=== PATIENT | male | born 1955 | race Caucasian/White ===

== ENCOUNTER 2023-11-05 04:06 | Inpatient (IN) | payer OTHER ==
[2023-11-05] VITALS (7 sets, daily range): BP systolic 150; BP diastolic 85; PULSE 82–103; RESP 18–25; TEMP 98.9; O2SAT 92–96
[~2023-11-05] VITALS: Ht 180.3 cm; Wt 70.1 kg
[2023-11-05 07:06] LABS: Basophils # (auto) 0 10 ^3/uL (0-0.2); Basophils % (auto) 0.2 % (0.0-2.0); Eosinophils # (auto) 0 10 ^3/uL (0-0.8); Eosinophils % (auto) 0.1 % (0.0-7.0); Hematocrit 55.7 % (41.0-53.0); Lymphocytes # (auto) 1.9 10 ^3/uL (0.4-5.4); Lymphocytes % (auto) 12.5 % (10.0-50.0); Mean Corpuscular Hemoglobin 33.5 pg (28.0-32.0); Mean Corpuscular Hgb Conc. 34.2 g/dL (32.0-36.0); Mean Corpuscular Volume 98.1 fL (80.0-100.0); Monocytes # (auto) 1.1 10 ^3/uL (0-1.3); Monocytes % (auto) 7.1 % (0.0-12.0); Neutrophils # (auto) 12.1 10 ^3/uL (1.6-8.6); Neutrophils % (auto) 80.1 % (37.0-80.0); Nucleated Red Blood Cells % 0.1 %; Platelet Count (auto) 209 10^3/uL (140-450); Red Blood Cells 5.68 10^6/uL (4.5-5.90); Red Cell Distribution Width 13.5 % (11.8-14.3); White Blood Cell 15.1 10^3/uL (4.4-10.8)
[2023-11-05 07:31] LABS: Chloride 108 mmol/L (98-107); Potassium 4.1 mmol/L (3.5-5.1); Sodium 139 mmol/L (136-145)
[2023-11-05 07:32] LABS: Anion Gap 10 (5-15); Carbon Dioxide 21 mmol/L (20-30)
[2023-11-05 07:37] LABS: Glucose 138 mg/dL (74-106)
[2023-11-05 07:38] LABS: BUN/Creatinine Ratio 15.4 (10.0-20.0); Blood Urea Nitrogen 12 mg/dL (9-23)
[2023-11-05] MEDS ORDERED: DEXTROSE (50%) 50ML SYRG IV PRN (09:30)
[2023-11-05] MEDS: SODIUM CHLORIDE 0.9% 1,000 ML IV SCH (09:30)
[2023-11-05] MEDS ORDERED: DOCUSATE SOD 100 MG CAP PO PRN (09:30)
[2023-11-05] MEDS: IOHEXOL 350 MG/ML 100ML IJ ONE (09:54)
[2023-11-05] MEDS: levoFLOXacin 500MG 100 ML IV SCH (10:00)
[2023-11-05 10:09] LABS: INR 1.23 (0.9-1.15); Prothrombin Time 13.1 sec (9.3-11.8)
[2023-11-05] MEDS ORDERED: NITROGLYCERIN 0.4 MG SL TAB SL PRN (10:30)
[2023-11-05] MEDS: methylPREDNISolone SOD SUCC 125 MG/2 ML VL IV ONE (10:45)
[2023-11-05] MEDS: PANTOPRAZOLE 40 MG/10 ML VIAL INJ IV ONE (10:45)
[2023-11-05] MEDS: ALBUTEROL SULF 2.5 MG/0.5ML(0.5%) NEB SOLN NEB ONE (11:11)
[2023-11-05] MEDS: IPRATROPIUM BROM 0.5 MG/2.5ML INH SOL NEB ONE (11:11)
[2023-11-05] MEDS: ACCU-CHEK COMFORT CURVE STRIP VI SCH (11:41)
[2023-11-05] MEDS: InsuLIN REG 1unit/0.01ml Soln (100units/ml) SC SCH (11:43)
[2023-11-05] MEDS: ENOXAPARIN SOD 40 MG/0.4 ML SYRINGE SC SCH (12:00)
[2023-11-05 14:12] LABS: Erythrocyte Sedimentation Rate 2 mm/hr (0-20)
[2023-11-05] MEDS: amLODIPine BESYLATE 5 MG TAB PO SCH (15:14)
[2023-11-05] MEDS: methylPREDNISolone SOD SUCC 125 MG/2 ML VL IV SCH (15:15)
[2023-11-05] MEDS: MORPHINE SULFATE INJ 2 MG/ml SYRG IV PRN (20:58)
[2023-11-05] MEDS: ONDANSETRON HCL 4 MG/2 ML VIAL IV PRN (20:58)
[2023-11-05] MEDS: IPRATROPIUM BROM 0.5 MG/2.5ML INH SOL NEB PRN (21:18)
[2023-11-05] MEDS: ALBUTEROL SULF 2.5 MG/0.5ML(0.5%) NEB SOLN NEB PRN (21:18)
[2023-11-06] VITALS (22 sets, daily range): BP systolic 124–168; BP diastolic 63–84; PULSE 72–98; RESP 20–33; TEMP 97.9–98.9; O2SAT 90–97
[2023-11-06] MEDS ORDERED: EMPA1TAB3 PO (01:39)
[2023-11-06] MEDS ORDERED: RILU50TA2 PO ×2 (01:39→08:54)
[2023-11-06] MEDS ORDERED: LEVO100T8 PO (01:39)
[2023-11-06] MEDS ORDERED: DULA0.5I SC (01:39)
[2023-11-06] MEDS ORDERED: ACE30IS PO (01:39)
[2023-11-06] MEDS ORDERED: LATA0.008 EACHEYE (01:39)
[2023-11-06] MEDS ORDERED: FLUT50SP NAS (01:39)
[2023-11-06] MEDS ORDERED: [UNRECOGNIZED DRUG - CODE] (02:58)
[2023-11-06] MEDS ORDERED: ALBUAER3 IN (02:58)
[2023-11-06 04:27] LABS: Base Excess -2.8 mmol/L (-2.0-3.0)
[2023-11-06 06:19] LABS: Base Excess 1.8 mmol/L (-2.0-3.0)
[2023-11-06 07:45] LABS: Alanine Aminotransferase 23 U/L (7-40); Albumin 4.1 g/dL (3.2-4.8); Alkaline Phosphatase 63 U/L (46-116); Anion Gap 8 (5-15); Aspartate Aminotransferase 15 U/L (13-40); BUN/Creatinine Ratio 20.3 (10.0-20.0); Bilirubin, Total 0.4 mg/dL (0.2-1.0); Blood Urea Nitrogen 14 mg/dL (9-23); Calcium 10.6 mg/dL (8.7-10.4); Carbon Dioxide 30 mmol/L (20-30); Chloride 104 mmol/L (98-107); Glucose 141 mg/dL (74-106); Potassium 4.3 mmol/L (3.5-5.1); Sodium 142 mmol/L (136-145); Total Protein 6.9 g/dL (5.7-8.2)
[2023-11-06] MEDS ORDERED: LEVOTHYROXINE SODIUM 100 MCG TAB PO ONE (08:00)
[2023-11-06 08:04] LABS: Basophils # (auto) 0 10 ^3/uL (0-0.2); Basophils % (auto) 0.1 % (0.0-2.0); Eosinophils # (auto) 0 10 ^3/uL (0-0.8); Hematocrit 53.7 % (41.0-53.0); Hemoglobin 18.6 g/dL (13.5-17.5); Lymphocytes # (auto) 0.7 10 ^3/uL (0.4-5.4); Lymphocytes % (auto) 5.3 % (10.0-50.0); Mean Corpuscular Hemoglobin 34.3 pg (28.0-32.0); Mean Corpuscular Hgb Conc. 34.7 g/dL (32.0-36.0); Mean Corpuscular Volume 98.9 fL (80.0-100.0); Monocytes # (auto) 0.3 10 ^3/uL (0-1.3); Monocytes % (auto) 2.7 % (0.0-12.0); Neutrophils # (auto) 11.6 10 ^3/uL (1.6-8.6); Neutrophils % (auto) 91.9 % (37.0-80.0); Platelet Count (auto) 185 10^3/uL (140-450); Red Blood Cells 5.43 10^6/uL (4.5-5.90); Red Cell Distribution Width 13.3 % (11.8-14.3); White Blood Cell 12.6 10^3/uL (4.4-10.8)
[2023-11-06] MEDS ORDERED: CLOB0.05 TOP (08:54)
[2023-11-06] MEDS ORDERED: OMEGCAP2 OR (08:54)
[2023-11-06] MEDS ORDERED: CHOL200064 PO (08:54)
[2023-11-06] MEDS ORDERED: POM PO (08:56)
[2023-11-06] MEDS ORDERED: TIMO0.5S28 EACHEYE (09:00)
[2023-11-06] MEDS ORDERED: DIPH25CA51 PO (09:03)
[2023-11-06] MEDS ORDERED: GUAI600T78 PO (09:03)
[2023-11-06] MEDS ORDERED: methylPREDNISolone SOD SUCC 125 MG/2 ML VL IV SCH (10:00)
[2023-11-06 11:15] LABS: COVID19 ANTIGEN SOFIA FIA NEGATIVE (NEGATIVE); Rapid Influenza A Negative (Negative); Rapid Influenza B Negative (Negative)
[2023-11-06 11:15] LABS: Base Excess -0.1 mmol/L (-2.0-3.0)
[2023-11-06] MEDS ORDERED: VANCOMYCIN PER PHARMACY 1,000 MG IV SCH (11:30)
[2023-11-06 11:32] LABS: Magnesium 2.1 mg/dL (1.6-2.6)
[2023-11-06] MEDS: PANTOPRAZOLE 40 MG/10 ML VIAL INJ IV SCH (11:42)
[2023-11-06] MEDS: HYDROCORTISONE SOD SUCC 100 MG/2ML INJ VIAL IV ONE (11:51)
[2023-11-06 12:26] LABS: Urine Bacteria None Seen /hpf (None Seen)
[2023-11-06] MEDS ORDERED: VANCOMYCIN 1GM/200ML 200 ML IV ONE (12:30)
[2023-11-06 12:38] LABS: Urine Blood TRACE /uL (Negative); Urine Clarity Clear (Clear); Urine Color Yellow (Yellow); Urine Mucus FEW (None Seen); Urine Protein, UAD 1+ (Negative); Urine Specific Gravity 1.029 (1.001-1.035); Urine Urobilinogen Normal (Negative); Urine WBC <1 /hpf (0 - 3); Urine pH 5.5 (5.0-9.0)
[2023-11-06 12:40] LABS: Lactic Acid w/Reflex 2.3 mmol/L (0.4-2.0)
[2023-11-06] MEDS: VANCOMYCIN 1GM/200ML 200 ML IV ONE ×2 (12:52→13:52)
[2023-11-06 13:00] LABS: Amphetamine Screen, Urine Neg (NEGATIVE); Barbiturate Scree,Urine Neg (NEGATIVE); Benzodiazephine Screen, Urine Neg (NEGATIVE); Cannabinoid Screen, Urine Pos (NEGATIVE); Cocaine Screen, Urine Neg (NEGATIVE); Opiate Scree,Urine Neg (NEGATIVE); Phencyclidine Screen, Urine Neg (NEGATIVE)
[2023-11-06 13:59] LABS: INR 1.31 (0.9-1.15); Prothrombin Time 13.6 sec (9.3-11.8)
[2023-11-06] MEDS: RILUZOLE 50 MG TAB PO SCH (14:14)
[2023-11-06] MEDS: RADICAVA PO SCH (14:14)
[2023-11-06] MEDS: CEFEPIME 2GM/50ML 50 ML IV SCH (14:22)
[2023-11-06] MEDS: SODIUM CHLORIDE 0.9% 1,000 ML IV ONE (15:30)
[2023-11-06] MEDS: ALBUTEROL SULF 2.5 MG/0.5ML(0.5%) NEB SOLN NEB SCH (18:53)
[2023-11-06] MEDS: IPRATROPIUM BROM 0.5 MG/2.5ML INH SOL NEB SCH (18:53)
[2023-11-06] MEDS ORDERED: hydrALAZINE HCL 20 MG/ML VL IV PRN (20:45)
[2023-11-06] MEDS: HYDROCORTISONE SOD SUCC 100 MG/2ML INJ VIAL IV SCH (21:09)
[2023-11-06 21:47] LABS: Free T4 (Free Thyroxine) 1.46 ng/dL (0.89-1.76)
[2023-11-06 21:48] LABS: Free T3 2.25 pg/mL (2.3-4.2); T3 Total 0.61 ng/mL (0.60-1.81)
[2023-11-06] MEDS: LATANOPROST 0.005 % OPTH(EYE) SOL 2.5ML EACHEYE SCH (22:00)
[2023-11-06] MEDS: TIMOLOL MAL 0.5% OPTH(EYE) SOL 5ML EACHEYE SCH (22:00)
[2023-11-07] VITALS (63 sets, daily range): BP systolic 77–185; BP diastolic 31–89; PULSE 50–123; RESP 15–33; TEMP 97.6–98.6; O2SAT 89–100
[2023-11-07] MEDS: VANCOMYCIN 1GM/200ML 200 ML IV SCH (03:19)
[2023-11-07] MEDS: LEVOTHYROXINE SODIUM 100 MCG TAB PO SCH (05:25)
[2023-11-07 06:48] LABS: Base Excess 4.9 mmol/L (-2.0-3.0)
[2023-11-07] MEDS: hydrALAZINE HCL 20 MG/ML VL IV PRN (07:02)
[2023-11-07 07:03] LABS: Basophils # (auto) 0 10 ^3/uL (0-0.2); Basophils % (auto) 0.2 % (0.0-2.0); Eosinophils # (auto) 0 10 ^3/uL (0-0.8); Hematocrit 48.1 % (41.0-53.0); Hemoglobin 16.5 g/dL (13.5-17.5); Lymphocytes # (auto) 1.6 10 ^3/uL (0.4-5.4); Mean Corpuscular Hemoglobin 33.3 pg (28.0-32.0); Mean Corpuscular Hgb Conc. 34.3 g/dL (32.0-36.0); Mean Corpuscular Volume 97.2 fL (80.0-100.0); Monocytes # (auto) 1.3 10 ^3/uL (0-1.3); Monocytes % (auto) 7.6 % (0.0-12.0); Neutrophils # (auto) 14.5 10 ^3/uL (1.6-8.6); Neutrophils % (auto) 83.2 % (37.0-80.0); Platelet Count (auto) 179 10^3/uL (140-450); Red Blood Cells 4.95 10^6/uL (4.5-5.90); Red Cell Distribution Width 13.4 % (11.8-14.3); White Blood Cell 17.5 10^3/uL (4.4-10.8)
[2023-11-07 07:17] LABS: Alanine Aminotransferase 18 U/L (7-40); Alkaline Phosphatase 54 U/L (46-116); Anion Gap 6 (5-15); BUN/Creatinine Ratio 28.2 (10.0-20.0); Blood Urea Nitrogen 20 mg/dL (9-23); Calcium 10.6 mg/dL (8.7-10.4); Carbon Dioxide 29 mmol/L (20-30); Chloride 107 mmol/L (98-107); Glucose 142 mg/dL (74-106); Potassium 3.6 mmol/L (3.5-5.1); Sodium 142 mmol/L (136-145)
[2023-11-07 07:18] LABS: Albumin 3.7 g/dL (3.2-4.8); Aspartate Aminotransferase 12 U/L (13-40); Bilirubin, Total 0.8 mg/dL (0.2-1.0); Phosphorus 2.4 mg/dL (2.4-5.1); Total Protein 6.3 g/dL (5.7-8.2)
[2023-11-07] MEDS: AMIODARONE BOLUS KIT 100 ML IV ONE ×2 (08:50→09:07)
[2023-11-07] MEDS: AMIODARONE 450mg/250ml AE 250 ML IV SCH ×2 (09:05→15:27)
[2023-11-07] MEDS: AMIODARONE 450mg/250ml AE 250 ML IV ONE (09:07)
[2023-11-07] MEDS: VASOPRESSIN 20 UNITS in SODIUM CHL 0.9% 99 ML IV SCH (09:45)
[2023-11-07] MEDS: PROPOFOL 100 ML IV SCH (09:45)
[2023-11-07] MEDS: fentaNYL Drip 2500mCg/250mlNS 250 ML IV SCH (12:00)
[2023-11-07] MEDS: MIDAZOLAM DRIP 50 mg/50mL 50 ML IV SCH (12:00)
[2023-11-07] MEDS: ETOMIDATE (2MG/ML) 20ML VIAL IV ONE (12:18)
[2023-11-07] MEDS: ROCURONIUM 10MG/ML 10ML VIAL IV ONE (12:19)
[2023-11-07] MEDS: NOREPINEPHRINE 8 MG/250ML KIT 250 ML IV SCH (12:20)
[2023-11-07] MEDS: AZITHROMYCIN 500MG/ 250ML 250 ML IV SCH (13:03)
[2023-11-07] MEDS: LIDOCAINE 1% (LOCAL ANESTH.) PF 5ml SDV ID ONE (17:45)
[2023-11-07] MEDS: SODIUM CHLORIDE 0.9% 1,000 ML IV SCH (20:43)
[2023-11-07] MEDS: SODIUM CHLOR 0.9% PF (SALINE LOCK) 10ML VIAL/SYR IV SCH (21:04)
[2023-11-07 21:40] LABS: Lactic Acid w/Reflex 2.3 mmol/L (0.4-2.0)
[2023-11-07] MEDS: ENOXAPARIN SOD 40 MG/0.4 ML SYRINGE SC SCH (23:38)
[2023-11-08] VITALS (108 sets, daily range): BP systolic 93–141; BP diastolic 54–75; PULSE 47–65; RESP 13–22; TEMP 98.1–99.3; O2SAT 92–97
[2023-11-08 04:08] LABS: Basophils # (auto) 0 10 ^3/uL (0-0.2); Basophils % (auto) 0.3 % (0.0-2.0); Eosinophils # (auto) 0 10 ^3/uL (0-0.8); Hemoglobin 15.3 g/dL (13.5-17.5); Lymphocytes # (auto) 0.8 10 ^3/uL (0.4-5.4); Lymphocytes % (auto) 4.4 % (10.0-50.0); Mean Corpuscular Hemoglobin 33.2 pg (28.0-32.0); Mean Corpuscular Volume 97.6 fL (80.0-100.0); Monocytes # (auto) 1.4 10 ^3/uL (0-1.3); Monocytes % (auto) 8.2 % (0.0-12.0); Neutrophils % (auto) 87.1 % (37.0-80.0); Platelet Count (auto) 183 10^3/uL (140-450); Red Blood Cells 4.61 10^6/uL (4.5-5.90); Red Cell Distribution Width 13.4 % (11.8-14.3); White Blood Cell 17.3 10^3/uL (4.4-10.8)
[2023-11-08 04:32] LABS: Alanine Aminotransferase 12 U/L (7-40); Albumin 3.6 g/dL (3.2-4.8); Alkaline Phosphatase 49 U/L (46-116); Anion Gap 4 (5-15); Aspartate Aminotransferase 11 U/L (13-40); BUN/Creatinine Ratio 26.4 (10.0-20.0); Bilirubin, Total 0.6 mg/dL (0.2-1.0); Blood Urea Nitrogen 19 mg/dL (9-23); Calcium 10.1 mg/dL (8.7-10.4); Carbon Dioxide 29 mmol/L (20-30); Chloride 107 mmol/L (98-107); Glucose 188 mg/dL (74-106); Magnesium 2.2 mg/dL (1.6-2.6); Phosphorus 3.3 mg/dL (2.4-5.1); Potassium 3.6 mmol/L (3.5-5.1); Sodium 140 mmol/L (136-145); Total Protein 5.9 g/dL (5.7-8.2)
[2023-11-08] MEDS ORDERED: GLYCOPYRROLATE 0.2 MG/ML 1ML VIAL ONE (06:59)
[2023-11-08] MEDS ORDERED: EPINEPHrine HCL 1 MG/1 ML AMP ONE (06:59)
[2023-11-08] MEDS ORDERED: fentaNYL CITRATE 100 MCG/2 ML VL ONE (06:59)
[2023-11-08] MEDS: LIDOCAINE 2% JELLY 11ml (GLYDO) ONE (07:00)
[2023-11-08] MEDS ORDERED: MIDAZOLAM HCL 2MG/2ML 2ml VIAL (1mg/ml) ONE (07:00)
[2023-11-08] MEDS: LIDOCAINE 2%HCL (LOCAL ANESTH.) INJ 10ml MDV ONE (07:00)
[2023-11-08 07:06] LABS: Base Excess 2.1 mmol/L (-2.0-3.0)
[2023-11-08] MEDS: MEPERIDINE HCL (25 MG/ML) 1ML VIAL IM ONE (08:30)
[2023-11-08] MEDS: LIDOCAINE HCL 2 % INJ 2ML MPF NEB ONE (08:30)
[2023-11-08] MEDS: LEVALBUTEROL HCL 1.25 MG/3 ML NEB NEB SCH (12:27)
[2023-11-08] MEDS: AMIODARONE HCL 200 MG TAB NG SCH (21:47)
[2023-11-09] VITALS (107 sets, daily range): BP systolic 97–159; BP diastolic 53–84; PULSE 43–63; RESP 12–20; TEMP 97.2–99.1; O2SAT 90–98
[2023-11-09 04:12] LABS: Basophils # (auto) 0 10 ^3/uL (0-0.2); Basophils % (auto) 0.1 % (0.0-2.0); Eosinophils # (auto) 0 10 ^3/uL (0-0.8); Eosinophils % (auto) 0.1 % (0.0-7.0); Hematocrit 40.8 % (41.0-53.0); Hemoglobin 14.1 g/dL (13.5-17.5); Lymphocytes # (auto) 0.9 10 ^3/uL (0.4-5.4); Lymphocytes % (auto) 6.9 % (10.0-50.0); Mean Corpuscular Hemoglobin 33.9 pg (28.0-32.0); Mean Corpuscular Hgb Conc. 34.6 g/dL (32.0-36.0); Mean Corpuscular Volume 98.1 fL (80.0-100.0); Monocytes # (auto) 0.9 10 ^3/uL (0-1.3); Monocytes % (auto) 7.1 % (0.0-12.0); Neutrophils # (auto) 10.5 10 ^3/uL (1.6-8.6); Neutrophils % (auto) 85.8 % (37.0-80.0); Platelet Count (auto) 122 10^3/uL (140-450); Red Blood Cells 4.16 10^6/uL (4.5-5.90); Red Cell Distribution Width 13.4 % (11.8-14.3); White Blood Cell 12.3 10^3/uL (4.4-10.8)
[2023-11-09 04:31] LABS: Chloride 109 mmol/L (98-107); Potassium 3.6 mmol/L (3.5-5.1); Sodium 142 mmol/L (136-145)
[2023-11-09 04:32] LABS: Anion Gap 5 (5-15); Carbon Dioxide 28 mmol/L (20-30)
[2023-11-09 04:33] LABS: Calcium 9.5 mg/dL (8.7-10.4)
[2023-11-09 04:37] LABS: BUN/Creatinine Ratio 32.7 (10.0-20.0); Blood Urea Nitrogen 18 mg/dL (9-23); Glucose 161 mg/dL (74-106)
[2023-11-09 04:38] LABS: Magnesium 2.1 mg/dL (1.6-2.6)
[2023-11-09 04:40] LABS: Phosphorus 2.6 mg/dL (2.4-5.1)
[2023-11-09] MEDS: ENOXAPARIN SOD 60 MG/0.6 ML SYRINGE SC SCH (21:58)
[2023-11-10] VITALS (105 sets, daily range): BP systolic 96–222; BP diastolic 51–125; PULSE 35–115; RESP 15–28; TEMP 98.2–99.9; O2SAT 91–96
[2023-11-10 07:47] LABS: Base Excess 3.1 mmol/L (-2.0-3.0)
[2023-11-10] MEDS: hydrALAZINE HCL 20 MG/ML VL ONE (11:20)
[2023-11-10 11:30] LABS: Basophils # (auto) 0 10 ^3/uL (0-0.2); Basophils % (auto) 0.2 % (0.0-2.0); Eosinophils # (auto) 0 10 ^3/uL (0-0.8); Eosinophils % (auto) 0.3 % (0.0-7.0); Hematocrit 39.7 % (41.0-53.0); Hemoglobin 13.7 g/dL (13.5-17.5); Lymphocytes # (auto) 1.2 10 ^3/uL (0.4-5.4); Lymphocytes % (auto) 10.9 % (10.0-50.0); Mean Corpuscular Hemoglobin 33.6 pg (28.0-32.0); Mean Corpuscular Hgb Conc. 34.4 g/dL (32.0-36.0); Mean Corpuscular Volume 97.7 fL (80.0-100.0); Monocytes # (auto) 0.7 10 ^3/uL (0-1.3); Neutrophils # (auto) 8.7 10 ^3/uL (1.6-8.6); Neutrophils % (auto) 81.6 % (37.0-80.0); Platelet Count (auto) 113 10^3/uL (140-450); Red Blood Cells 4.06 10^6/uL (4.5-5.90); Red Cell Distribution Width 13.4 % (11.8-14.3); White Blood Cell 10.6 10^3/uL (4.4-10.8)
[2023-11-10 11:46] LABS: INR 1.35 (0.9-1.15); Partial Thromboplastin Time 28.5 SEC (24.5-34.5)
[2023-11-10 11:48] LABS: Alanine Aminotransferase 17 U/L (7-40); Albumin 2.8 g/dL (3.2-4.8); Alkaline Phosphatase 40 U/L (46-116); Anion Gap 4 (5-15); Aspartate Aminotransferase 18 U/L (13-40); BUN/Creatinine Ratio 34.1 (10.0-20.0); Blood Urea Nitrogen 15 mg/dL (9-23); Calcium 8.2 mg/dL (8.7-10.4); Carbon Dioxide 27 mmol/L (20-30); Chloride 113 mmol/L (98-107); Glucose 113 mg/dL (74-106); Magnesium 1.7 mg/dL (1.6-2.6); Potassium 2.9 mmol/L (3.5-5.1); Sodium 144 mmol/L (136-145)
[2023-11-10 11:49] LABS: Bilirubin, Total 0.4 mg/dL (0.2-1.0); Total Protein 4.7 g/dL (5.7-8.2)
[2023-11-10] MEDS: POTASSIUM CHL 20MEQ/100ML 100 ML IV SCH (14:20)
[2023-11-10] MEDS: hydrALAZINE HCL 20 MG/ML VL IV ONE (15:07)
[2023-11-10] MEDS: FLUCONAZOLE 200MG/100ML 100 ML IV SCH (15:39)
[2023-11-10] MEDS: Glucerna 1.2 Cal 1Liter BOTTLE GT SCH (17:12)
[2023-11-10] MEDS: MAGNESIUM SULFATE 1GM/100ML 100 ML IV ONE (18:50)
[2023-11-10] MEDS: POTASSIUM PHOSPHATE 22 MEQ in SODIUM CHL 0.9% 100 ML IV ONE (18:56)
[2023-11-10] MEDS: VANCOMYCIN 1GM/200ML 200 ML IV SCH (23:37)
[2023-11-11] VITALS (107 sets, daily range): BP systolic 102–201; BP diastolic 52–114; PULSE 57–114; RESP 15–34; TEMP 94.1–99; O2SAT 89–97
[2023-11-11 04:05] LABS: Basophils # (auto) 0 10 ^3/uL (0-0.2); Basophils % (auto) 0.1 % (0.0-2.0); Eosinophils # (auto) 0 10 ^3/uL (0-0.8); Eosinophils % (auto) 0.1 % (0.0-7.0); Hematocrit 45.7 % (41.0-53.0); Hemoglobin 15.9 g/dL (13.5-17.5); Lymphocytes # (auto) 0.7 10 ^3/uL (0.4-5.4); Lymphocytes % (auto) 4.8 % (10.0-50.0); Mean Corpuscular Hemoglobin 33.9 pg (28.0-32.0); Mean Corpuscular Hgb Conc. 34.7 g/dL (32.0-36.0); Mean Corpuscular Volume 97.6 fL (80.0-100.0); Monocytes # (auto) 0.7 10 ^3/uL (0-1.3); Monocytes % (auto) 4.7 % (0.0-12.0); Neutrophils # (auto) 13.2 10 ^3/uL (1.6-8.6); Neutrophils % (auto) 90.3 % (37.0-80.0); Platelet Count (auto) 129 10^3/uL (140-450); Red Blood Cells 4.68 10^6/uL (4.5-5.90); Red Cell Distribution Width 13.4 % (11.8-14.3); White Blood Cell 14.6 10^3/uL (4.4-10.8)
[2023-11-11 04:26] LABS: Alanine Aminotransferase 29 U/L (7-40); Albumin 3.5 g/dL (3.2-4.8); Alkaline Phosphatase 63 U/L (46-116); Anion Gap 8 (5-15); Aspartate Aminotransferase 38 U/L (13-40); BUN/Creatinine Ratio 30.8 (10.0-20.0); Blood Urea Nitrogen 16 mg/dL (9-23); Calcium 9.4 mg/dL (8.7-10.4); Carbon Dioxide 26 mmol/L (20-30); Chloride 104 mmol/L (98-107); Glucose 152 mg/dL (74-106); Magnesium 2.1 mg/dL (1.6-2.6); Potassium 3.9 mmol/L (3.5-5.1); Sodium 138 mmol/L (136-145)
[2023-11-11 04:27] LABS: Bilirubin, Total 0.6 mg/dL (0.2-1.0); Phosphorus 3.5 mg/dL (2.4-5.1); Total Protein 5.7 g/dL (5.7-8.2)
[2023-11-11 05:00] LABS: CRP High Sensitivity 2.11 mg/dL (<1.0)
[2023-11-11 07:58] LABS: Base Excess 3.3 mmol/L (-2.0-3.0)
[2023-11-11] MEDS ORDERED: hydrALAZINE HCL 20 MG/ML VL IV PRN (08:45)
[2023-11-11] MEDS ORDERED: FLUCONAZOLE 200MG/100ML 100 ML IV SCH (10:00)
[2023-11-11] MEDS ORDERED: amLODIPine BESYLATE 5 MG TAB PO SCH (10:00)
[2023-11-11] MEDS: HYDROCORTISONE SOD SUCC 100 MG/2ML INJ VIAL IV SCH (10:00)
[2023-11-11] MEDS: hydrALAZINE HCL 20 MG/ML VL IV PRN (10:05)
[2023-11-11 18:15] LABS: Base Excess 3.1 mmol/L (-2.0-3.0)
[2023-11-11] MEDS: VANCOMYCIN 1GM/200ML 200 ML IV SCH (18:16)
[2023-11-12] VITALS (109 sets, daily range): BP systolic 87–192; BP diastolic 50–103; PULSE 55–89; RESP 7–32; TEMP 97.9–99.7; O2SAT 87–99
[2023-11-12 03:54] LABS: Basophils # (auto) 0.1 10 ^3/uL (0-0.2); Basophils % (auto) 0.3 % (0.0-2.0); Eosinophils # (auto) 0.1 10 ^3/uL (0-0.8); Eosinophils % (auto) 0.7 % (0.0-7.0); Hemoglobin 17.6 g/dL (13.5-17.5); Lymphocytes # (auto) 2.6 10 ^3/uL (0.4-5.4); Lymphocytes % (auto) 16.5 % (10.0-50.0); Mean Corpuscular Hemoglobin 33.8 pg (28.0-32.0); Mean Corpuscular Hgb Conc. 35.3 g/dL (32.0-36.0); Monocytes # (auto) 1.4 10 ^3/uL (0-1.3); Monocytes % (auto) 9.2 % (0.0-12.0); Neutrophils # (auto) 11.4 10 ^3/uL (1.6-8.6); Neutrophils % (auto) 73.3 % (37.0-80.0); Nucleated Red Blood Cells % 0.1 %; Platelet Count (auto) 173 10^3/uL (140-450); Red Blood Cells 5.21 10^6/uL (4.5-5.90); Red Cell Distribution Width 13.6 % (11.8-14.3); White Blood Cell 15.6 10^3/uL (4.4-10.8)
[2023-11-12 04:07] LABS: Alanine Aminotransferase 37 U/L (7-40); Albumin 3.7 g/dL (3.2-4.8); Alkaline Phosphatase 66 U/L (46-116); Anion Gap 7 (5-15); Aspartate Aminotransferase 42 U/L (13-40); BUN/Creatinine Ratio 29.8 (10.0-20.0); Blood Urea Nitrogen 14 mg/dL (9-23); Calcium 9.8 mg/dL (8.7-10.4); Carbon Dioxide 28 mmol/L (20-30); Chloride 101 mmol/L (98-107); Glucose 121 mg/dL (74-106); Potassium 3.2 mmol/L (3.5-5.1); Sodium 136 mmol/L (136-145)
[2023-11-12 04:08] LABS: Bilirubin, Total 0.8 mg/dL (0.2-1.0); Total Protein 6.2 g/dL (5.7-8.2)
[2023-11-12] MEDS: POTASSIUM CHL 20MEQ/100ML 100 ML IV ONE (05:48)
[2023-11-12 06:31] LABS: Base Excess 1.7 mmol/L (-2.0-3.0)
[2023-11-12] MEDS: POTASSIUM CHL 20MEQ/100ML 100 ML IV SCH (07:58)
[2023-11-13] VITALS (111 sets, daily range): BP systolic 117–230; BP diastolic 65–138; PULSE 64–118; RESP 9–38; TEMP 88.3–99.9; O2SAT 83–97
[2023-11-13 04:05] LABS: Eosinophils # (auto) 0.2 10 ^3/uL (0-0.8); White Blood Cell 12.5 10^3/uL (4.4-10.8)
[2023-11-13 04:07] LABS: Chloride 101 mmol/L (98-107); Potassium 3.9 mmol/L (3.5-5.1); Sodium 137 mmol/L (136-145)
[2023-11-13 04:10] LABS: Basophils # (auto) 0.1 10 ^3/uL (0-0.2); Basophils % (auto) 0.4 % (0.0-2.0); Eosinophils % (auto) 1.3 % (0.0-7.0); Hematocrit 50.5 % (41.0-53.0); Hemoglobin 17.7 g/dL (13.5-17.5); Lymphocytes # (auto) 1.9 10 ^3/uL (0.4-5.4); Lymphocytes % (auto) 14.8 % (10.0-50.0); Mean Corpuscular Hemoglobin 33.9 pg (28.0-32.0); Mean Corpuscular Hgb Conc. 35.1 g/dL (32.0-36.0); Mean Corpuscular Volume 96.5 fL (80.0-100.0); Monocytes # (auto) 1.5 10 ^3/uL (0-1.3); Monocytes % (auto) 12.3 % (0.0-12.0); Neutrophils # (auto) 8.9 10 ^3/uL (1.6-8.6); Neutrophils % (auto) 71.2 % (37.0-80.0); Nucleated Red Blood Cells % 0.1 %; Platelet Count (auto) 173 10^3/uL (140-450); Red Blood Cells 5.23 10^6/uL (4.5-5.90); Red Cell Distribution Width 13.5 % (11.8-14.3)
[2023-11-13 04:52] LABS: Alanine Aminotransferase 49 U/L (7-40); Albumin 3.6 g/dL (3.2-4.8); Alkaline Phosphatase 68 U/L (46-116); Anion Gap 8 (5-15); Aspartate Aminotransferase 43 U/L (13-40); BUN/Creatinine Ratio 28.6 (10.0-20.0); Bilirubin, Total 0.9 mg/dL (0.2-1.0); Blood Urea Nitrogen 14 mg/dL (9-23); Carbon Dioxide 28 mmol/L (20-30); Glucose 110 mg/dL (74-106); Total Protein 6.1 g/dL (5.7-8.2)
[2023-11-13 08:42] LABS: Base Excess 2.8 mmol/L (-2.0-3.0)
[2023-11-13] MEDS: METOPROLOL SUCCINATE XL 50 MG TAB PO SCH (10:00)
[2023-11-13] MEDS ORDERED: LABETALOL HCL 20 MG/4 ML VL IV PRN (21:00)
[2023-11-13] MEDS: LABETALOL HCL 20 MG/4 ML VL IV ONE (21:04)
[2023-11-14] VITALS (67 sets, daily range): BP systolic 50–182; BP diastolic 26–106; PULSE 49–136; RESP 13–35; TEMP 97.2–100.2; O2SAT 80–97
[2023-11-14] MEDS: MIDAZOLAM DRIP 50 mg/50mL 50 ML IV SCH (01:50)
[2023-11-14 04:40] LABS: Basophils # (auto) 0 10 ^3/uL (0-0.2); Eosinophils # (auto) 0 10 ^3/uL (0-0.8); Monocytes # (auto) 1.1 10 ^3/uL (0-1.3); Neutrophils # (auto) 9.6 10 ^3/uL (1.6-8.6)
[2023-11-14 04:46] LABS: Basophils % (auto) 0.2 % (0.0-2.0); Eosinophils % (auto) 0.2 % (0.0-7.0); Hematocrit 50.3 % (41.0-53.0); Hemoglobin 17.5 g/dL (13.5-17.5); Lymphocytes # (auto) 1.1 10 ^3/uL (0.4-5.4); Lymphocytes % (auto) 9.6 % (10.0-50.0); Mean Corpuscular Hemoglobin 33.9 pg (28.0-32.0); Mean Corpuscular Hgb Conc. 34.9 g/dL (32.0-36.0); Mean Corpuscular Volume 97.2 fL (80.0-100.0); Monocytes % (auto) 9.5 % (0.0-12.0); Neutrophils % (auto) 80.5 % (37.0-80.0); Platelet Count (auto) 162 10^3/uL (140-450); Red Blood Cells 5.17 10^6/uL (4.5-5.90); Red Cell Distribution Width 13.7 % (11.8-14.3); White Blood Cell 11.9 10^3/uL (4.4-10.8)
[2023-11-14 05:02] LABS: Alanine Aminotransferase 47 U/L (7-40); Albumin 3.7 g/dL (3.2-4.8); Alkaline Phosphatase 72 U/L (46-116); Anion Gap 7 (5-15); Aspartate Aminotransferase 36 U/L (13-40); Bilirubin, Total 0.7 mg/dL (0.2-1.0); Blood Urea Nitrogen 16 mg/dL (9-23); Calcium 10.2 mg/dL (8.7-10.4); Carbon Dioxide 30 mmol/L (20-30); Chloride 100 mmol/L (98-107); Glucose 99 mg/dL (74-106); Sodium 137 mmol/L (136-145); Total Protein 6.1 g/dL (5.7-8.2)
[2023-11-14 08:09] LABS: Base Excess 2.7 mmol/L (-2.0-3.0)
[2023-11-14] MEDS: AMIODARONE 450mg/250ml AE 250 ML IV ONE (19:24)
[2023-11-14] MEDS: AMIODARONE BOLUS KIT 100 ML IV ONE ×2 (19:48→19:50)
[2023-11-14] MEDS: AMIODARONE 450mg/250ml AE 250 ML IV SCH (19:53)
[2023-11-14] MEDS: LORazepam 2MG/ML-1ML VIAL IM ONE (21:45)
[2023-11-14] MEDS: ETOMIDATE (2MG/ML) 20ML VIAL IV ONE (22:31)
[2023-11-14] MEDS: SUCCINYLCHOLINE CHLORIDE 20 MG/ML 10ML VIAL IV ONE (22:31)
[2023-11-14] MEDS: MIDAZOLAM DRIP 50 mg/50mL 50 ML IV ONE (22:56)
[2023-11-14] MEDS: fentaNYL Drip 2500mCg/250mlNS 250 ML IV ONE (22:57)
[2023-11-14 23:22] LABS: Base Excess 3.2 mmol/L (-2.0-3.0)
[2023-11-15] VITALS (103 sets, daily range): BP systolic 80–163; BP diastolic 45–85; PULSE 42–72; RESP 15–23; TEMP 97.3–100.6; O2SAT 87–100
[2023-11-15 00:29] LABS: Base Excess 3.6 mmol/L (-2.0-3.0)
[2023-11-15] MEDS: AMIODARONE 450mg/250ml AE 250 ML IV SCH (00:39)
[2023-11-15] MEDS: fentaNYL Drip 2500mCg/250mlNS 250 ML IV SCH (01:51)
[2023-11-15] MEDS: NOREPINEPHRINE 8 MG/250ML KIT 250 ML IV SCH (01:51)
[2023-11-15 04:29] LABS: Basophils # (auto) 0 10 ^3/uL (0-0.2); Basophils % (auto) 0.1 % (0.0-2.0); Eosinophils # (auto) 0 10 ^3/uL (0-0.8); Eosinophils % (auto) 0.1 % (0.0-7.0); Hematocrit 48.6 % (41.0-53.0); Hemoglobin 16.8 g/dL (13.5-17.5); Lymphocytes # (auto) 1.5 10 ^3/uL (0.4-5.4); Lymphocytes % (auto) 6.3 % (10.0-50.0); Mean Corpuscular Hemoglobin 33.3 pg (28.0-32.0); Mean Corpuscular Hgb Conc. 34.5 g/dL (32.0-36.0); Mean Corpuscular Volume 96.7 fL (80.0-100.0); Monocytes % (auto) 8.8 % (0.0-12.0); Neutrophils # (auto) 19.7 10 ^3/uL (1.6-8.6); Neutrophils % (auto) 84.7 % (37.0-80.0); Platelet Count (auto) 221 10^3/uL (140-450); Red Blood Cells 5.03 10^6/uL (4.5-5.90); Red Cell Distribution Width 13.4 % (11.8-14.3); White Blood Cell 23.2 10^3/uL (4.4-10.8)
[2023-11-15 04:41] LABS: Alanine Aminotransferase 37 U/L (7-40); Albumin 3.5 g/dL (3.2-4.8); Alkaline Phosphatase 66 U/L (46-116); Anion Gap 6 (5-15); Aspartate Aminotransferase 23 U/L (13-40); BUN/Creatinine Ratio 28.4 (10.0-20.0); Blood Urea Nitrogen 23 mg/dL (9-23); Calcium 9.9 mg/dL (8.7-10.4); Carbon Dioxide 32 mmol/L (20-30); Chloride 99 mmol/L (98-107); Glucose 184 mg/dL (74-106); Potassium 3.7 mmol/L (3.5-5.1); Sodium 137 mmol/L (136-145)
[2023-11-15 04:42] LABS: Bilirubin, Total 0.5 mg/dL (0.2-1.0); Total Protein 5.9 g/dL (5.7-8.2)
[2023-11-15] MEDS: ACETAMINOPHEN 650 mg PER 20.3 mL UD PO PRN (06:59)
[2023-11-15 07:32] LABS: Base Excess 7.1 mmol/L (-2.0-3.0)
[2023-11-15] MEDS ORDERED: VANCOMYCIN PER PHARMACY 0 MG IV SCH (09:00)
[2023-11-15] MEDS: VANCOMYCIN 1GM/200ML 200 ML IV ONE (09:59)
[2023-11-15] MEDS: MEROPENEM 1GM IVPB 50 ML IV SCH (13:54)
[2023-11-15] MEDS: IOHEXOL 350 MG/ML 100ML IJ ONE (15:34)
[2023-11-15] MEDS: POTASSIUM CHLORIDE 40 MEQ, LIDOCAINE 1% (LOCAL ANESTH.) 4 ML in SODIUM CHL 0.9% 250 ML IV ONE (17:00)
[2023-11-15] MEDS ORDERED: SOD CHL 0.9%/ KCL 40MEQ 1,000 ML IV SCH (17:15)
[2023-11-15] MEDS: POTASSIUM CHL 20MEQ/100ML 100 ML IV SCH (21:09)
[2023-11-15] MEDS: VANCOMYCIN 1GM/200ML 200 ML IV SCH (21:15)
[2023-11-15] MEDS: Glucerna 1.2 Cal 1Liter BOTTLE GT SCH (21:47)
[2023-11-16] VITALS (94 sets, daily range): BP systolic 76–141; BP diastolic 45–77; PULSE 45–66; RESP 15–22; TEMP 93.9–100.2; O2SAT 94–100
[2023-11-16 04:09] LABS: Basophils # (auto) 0 10 ^3/uL (0-0.2); Basophils % (auto) 0.1 % (0.0-2.0); Eosinophils # (auto) 0.1 10 ^3/uL (0-0.8); Eosinophils % (auto) 0.5 % (0.0-7.0); Hematocrit 44.4 % (41.0-53.0); Hemoglobin 15.4 g/dL (13.5-17.5); Lymphocytes # (auto) 2.7 10 ^3/uL (0.4-5.4); Mean Corpuscular Hemoglobin 33.5 pg (28.0-32.0); Mean Corpuscular Hgb Conc. 34.7 g/dL (32.0-36.0); Mean Corpuscular Volume 96.5 fL (80.0-100.0); Monocytes # (auto) 1.7 10 ^3/uL (0-1.3); Monocytes % (auto) 9.7 % (0.0-12.0); Neutrophils # (auto) 13.2 10 ^3/uL (1.6-8.6); Neutrophils % (auto) 74.7 % (37.0-80.0); Nucleated Red Blood Cells % 0.1 %; Platelet Count (auto) 167 10^3/uL (140-450); Red Cell Distribution Width 13.4 % (11.8-14.3); White Blood Cell 17.6 10^3/uL (4.4-10.8)
[2023-11-16 04:20] LABS: Alanine Aminotransferase 28 U/L (7-40); Albumin 3.4 g/dL (3.2-4.8); Alkaline Phosphatase 61 U/L (46-116); Anion Gap 11 (5-15); Aspartate Aminotransferase 19 U/L (13-40); BUN/Creatinine Ratio 30.2 (10.0-20.0); Blood Urea Nitrogen 16 mg/dL (9-23); Calcium 9.9 mg/dL (8.7-10.4); Carbon Dioxide 26 mmol/L (20-30); Chloride 102 mmol/L (98-107); Glucose 116 mg/dL (74-106); Potassium 4.1 mmol/L (3.5-5.1); Sodium 139 mmol/L (136-145)
[2023-11-16 04:21] LABS: Bilirubin, Total 0.8 mg/dL (0.2-1.0); Total Protein 5.7 g/dL (5.7-8.2)
[2023-11-16] MEDS: DOCUSATE ORAL LIQUID 100 MG/10 ML UD PO ONE (23:49)
[2023-11-17] VITALS (108 sets, daily range): BP systolic 79–184; BP diastolic 44–96; PULSE 43–80; RESP 12–26; TEMP 93.2–100.2; O2SAT 91–100
[2023-11-17 04:02] LABS: Basophils # (auto) 0 10 ^3/uL (0-0.2); Basophils % (auto) 0.3 % (0.0-2.0); Eosinophils # (auto) 0.1 10 ^3/uL (0-0.8); Eosinophils % (auto) 0.7 % (0.0-7.0); Hematocrit 40.9 % (41.0-53.0); Hemoglobin 14.4 g/dL (13.5-17.5); Lymphocytes # (auto) 2.2 10 ^3/uL (0.4-5.4); Lymphocytes % (auto) 16.6 % (10.0-50.0); Mean Corpuscular Hemoglobin 33.9 pg (28.0-32.0); Mean Corpuscular Hgb Conc. 35.1 g/dL (32.0-36.0); Mean Corpuscular Volume 96.4 fL (80.0-100.0); Monocytes % (auto) 7.6 % (0.0-12.0); Neutrophils # (auto) 10.1 10 ^3/uL (1.6-8.6); Neutrophils % (auto) 74.8 % (37.0-80.0); Platelet Count (auto) 134 10^3/uL (140-450); Red Blood Cells 4.24 10^6/uL (4.5-5.90); Red Cell Distribution Width 13.2 % (11.8-14.3); White Blood Cell 13.5 10^3/uL (4.4-10.8)
[2023-11-17 04:05] LABS: Anion Gap 9 (5-15); Carbon Dioxide 29 mmol/L (20-30); Chloride 101 mmol/L (98-107); Potassium 3.6 mmol/L (3.5-5.1); Sodium 139 mmol/L (136-145)
[2023-11-17 04:06] LABS: Calcium 9.3 mg/dL (8.7-10.4)
[2023-11-17 04:10] LABS: Glucose 109 mg/dL (74-106)
[2023-11-17 04:11] LABS: BUN/Creatinine Ratio 27.3 (10.0-20.0); Blood Urea Nitrogen 12 mg/dL (9-23); Magnesium 1.6 mg/dL (1.6-2.6)
[2023-11-17] MEDS: MAGNESIUM SULFATE 1GM/100ML 100 ML IV ONE (06:29)
[2023-11-17] MEDS: VANCOMYCIN 1GM/200ML 200 ML IV SCH (10:03)
[2023-11-18] VITALS (107 sets, daily range): BP systolic 84–172; BP diastolic 45–91; PULSE 43–83; RESP 14–28; TEMP 92.5–99.5; O2SAT 95–100
[2023-11-18 05:13] LABS: Basophils # (auto) 0 10 ^3/uL (0-0.2); Basophils % (auto) 0.3 % (0.0-2.0); Eosinophils # (auto) 0.1 10 ^3/uL (0-0.8); Eosinophils % (auto) 1.3 % (0.0-7.0); Hematocrit 40.5 % (41.0-53.0); Hemoglobin 14.1 g/dL (13.5-17.5); Lymphocytes # (auto) 1.8 10 ^3/uL (0.4-5.4); Lymphocytes % (auto) 16.2 % (10.0-50.0); Mean Corpuscular Hemoglobin 33.9 pg (28.0-32.0); Mean Corpuscular Hgb Conc. 34.9 g/dL (32.0-36.0); Mean Corpuscular Volume 97.2 fL (80.0-100.0); Monocytes # (auto) 0.8 10 ^3/uL (0-1.3); Monocytes % (auto) 7.3 % (0.0-12.0); Neutrophils # (auto) 8.1 10 ^3/uL (1.6-8.6); Neutrophils % (auto) 74.9 % (37.0-80.0); Platelet Count (auto) 129 10^3/uL (140-450); Red Blood Cells 4.17 10^6/uL (4.5-5.90); Red Cell Distribution Width 13.7 % (11.8-14.3); White Blood Cell 10.8 10^3/uL (4.4-10.8)
[2023-11-18 05:30] LABS: Alanine Aminotransferase 27 U/L (7-40); Alkaline Phosphatase 59 U/L (46-116); Anion Gap 4 (5-15); Aspartate Aminotransferase 18 U/L (13-40); BUN/Creatinine Ratio 28.6 (10.0-20.0); Blood Urea Nitrogen 12 mg/dL (9-23); Calcium 9.1 mg/dL (8.7-10.4); Carbon Dioxide 33 mmol/L (20-30); Chloride 102 mmol/L (98-107); Glucose 113 mg/dL (74-106); Magnesium 1.8 mg/dL (1.6-2.6); Potassium 3.7 mmol/L (3.5-5.1); Sodium 139 mmol/L (136-145)
[2023-11-18 05:31] LABS: Albumin 3.2 g/dL (3.2-4.8); Bilirubin, Total 0.5 mg/dL (0.2-1.0); Phosphorus 2.6 mg/dL (2.4-5.1); Total Protein 5.3 g/dL (5.7-8.2)
[2023-11-18 08:32] LABS: Base Excess 2.9 mmol/L (-2.0-3.0)
[2023-11-18 11:37] LABS: Base Excess 6.4 mmol/L (-2.0-3.0)
[2023-11-19] VITALS (104 sets, daily range): BP systolic 81–279; BP diastolic 48–121; PULSE 46–96; RESP 11–33; TEMP 98.6–100.2; O2SAT 93–100
[2023-11-19 04:42] LABS: Basophils # (auto) 0 10 ^3/uL (0-0.2); Basophils % (auto) 0.3 % (0.0-2.0); Eosinophils # (auto) 0.1 10 ^3/uL (0-0.8); Eosinophils % (auto) 1.2 % (0.0-7.0); Hematocrit 43.2 % (41.0-53.0); Hemoglobin 15.2 g/dL (13.5-17.5); Lymphocytes # (auto) 1.7 10 ^3/uL (0.4-5.4); Lymphocytes % (auto) 16.1 % (10.0-50.0); Mean Corpuscular Hemoglobin 33.7 pg (28.0-32.0); Mean Corpuscular Hgb Conc. 35.1 g/dL (32.0-36.0); Mean Corpuscular Volume 96.1 fL (80.0-100.0); Monocytes # (auto) 0.9 10 ^3/uL (0-1.3); Monocytes % (auto) 8.3 % (0.0-12.0); Neutrophils # (auto) 7.9 10 ^3/uL (1.6-8.6); Neutrophils % (auto) 74.1 % (37.0-80.0); Nucleated Red Blood Cells % 0.1 %; Platelet Count (auto) 157 10^3/uL (140-450); Red Cell Distribution Width 13.8 % (11.8-14.3); White Blood Cell 10.6 10^3/uL (4.4-10.8)
[2023-11-19 04:46] LABS: Alanine Aminotransferase 31 U/L (7-40); Alkaline Phosphatase 68 U/L (46-116); Anion Gap 5 (5-15); Aspartate Aminotransferase 23 U/L (13-40); Blood Urea Nitrogen 10 mg/dL (9-23); Calcium 9.2 mg/dL (8.7-10.4); Carbon Dioxide 31 mmol/L (20-30); Chloride 101 mmol/L (98-107); Glucose 102 mg/dL (74-106); Potassium 3.8 mmol/L (3.5-5.1); Sodium 137 mmol/L (136-145)
[2023-11-19 04:47] LABS: Albumin 3.4 g/dL (3.2-4.8); Bilirubin, Total 0.6 mg/dL (0.2-1.0); Total Protein 5.8 g/dL (5.7-8.2)
[2023-11-19] MEDS: DOCUSATE ORAL LIQUID 100 MG/10 ML UD PO PRN (11:22)
[2023-11-19] MEDS: hydrALAZINE HCL 20 MG/ML VL IV ONE (13:13)
[2023-11-19 14:47] LABS: Base Excess 4.2 mmol/L (-2.0-3.0)
[2023-11-20] VITALS (107 sets, daily range): BP systolic 70–202; BP diastolic 41–106; PULSE 52–109; RESP 10–32; TEMP 94.3–100.2; O2SAT 93–100
[2023-11-20 03:26] LABS: Alanine Aminotransferase 26 U/L (7-40); Albumin 3.3 g/dL (3.2-4.8); Alkaline Phosphatase 65 U/L (46-116); Anion Gap 7 (5-15); Aspartate Aminotransferase 20 U/L (13-40); Blood Urea Nitrogen 9 mg/dL (9-23); Carbon Dioxide 28 mmol/L (20-30); Chloride 98 mmol/L (98-107); Glucose 168 mg/dL (74-106); Potassium 3.5 mmol/L (3.5-5.1); Sodium 133 mmol/L (136-145)
[2023-11-20 03:27] LABS: Bilirubin, Total 0.6 mg/dL (0.2-1.0); Total Protein 5.7 g/dL (5.7-8.2)
[2023-11-20 03:38] LABS: Basophils # (auto) 0.1 10 ^3/uL (0-0.2); Basophils % (auto) 0.5 % (0.0-2.0); Eosinophils # (auto) 0.1 10 ^3/uL (0-0.8); Eosinophils % (auto) 0.6 % (0.0-7.0); Hematocrit 41.1 % (41.0-53.0); Hemoglobin 14.2 g/dL (13.5-17.5); Lymphocytes # (auto) 1.8 10 ^3/uL (0.4-5.4); Lymphocytes % (auto) 14.3 % (10.0-50.0); Mean Corpuscular Hemoglobin 33.7 pg (28.0-32.0); Mean Corpuscular Hgb Conc. 34.6 g/dL (32.0-36.0); Mean Corpuscular Volume 97.5 fL (80.0-100.0); Monocytes # (auto) 1.1 10 ^3/uL (0-1.3); Monocytes % (auto) 8.6 % (0.0-12.0); Neutrophils # (auto) 9.5 10 ^3/uL (1.6-8.6); Platelet Count (auto) 178 10^3/uL (140-450); Red Blood Cells 4.22 10^6/uL (4.5-5.90); Red Cell Distribution Width 13.7 % (11.8-14.3); White Blood Cell 12.5 10^3/uL (4.4-10.8)
[2023-11-20 07:55] LABS: Base Excess 2.1 mmol/L (-2.0-3.0)
[2023-11-20] MEDS: RILUZOLE 50 MG TAB PO SCH (22:24)
[2023-11-21] VITALS (112 sets, daily range): BP systolic 77–204; BP diastolic 42–108; PULSE 57–101; RESP 11–29; TEMP 97.5–100.6; O2SAT 85–100
[2023-11-21 04:50] LABS: Basophils # (auto) 0 10 ^3/uL (0-0.2); Basophils % (auto) 0.3 % (0.0-2.0); Eosinophils # (auto) 0.1 10 ^3/uL (0-0.8); Eosinophils % (auto) 0.7 % (0.0-7.0); Hematocrit 42.6 % (41.0-53.0); Hemoglobin 14.8 g/dL (13.5-17.5); Lymphocytes # (auto) 1.9 10 ^3/uL (0.4-5.4); Mean Corpuscular Hemoglobin 33.7 pg (28.0-32.0); Mean Corpuscular Hgb Conc. 34.8 g/dL (32.0-36.0); Mean Corpuscular Volume 96.9 fL (80.0-100.0); Monocytes # (auto) 1.1 10 ^3/uL (0-1.3); Monocytes % (auto) 9.5 % (0.0-12.0); Neutrophils # (auto) 8.7 10 ^3/uL (1.6-8.6); Neutrophils % (auto) 73.5 % (37.0-80.0); Nucleated Red Blood Cells % 0.1 %; Platelet Count (auto) 202 10^3/uL (140-450); Red Blood Cells 4.39 10^6/uL (4.5-5.90); Red Cell Distribution Width 13.6 % (11.8-14.3); White Blood Cell 11.9 10^3/uL (4.4-10.8)
[2023-11-21 04:51] LABS: Alanine Aminotransferase 27 U/L (7-40); Albumin 3.6 g/dL (3.2-4.8); Alkaline Phosphatase 64 U/L (46-116); Anion Gap 7 (5-15); Aspartate Aminotransferase 24 U/L (13-40); BUN/Creatinine Ratio 19.6 (10.0-20.0); Blood Urea Nitrogen 9 mg/dL (9-23); Calcium 9.5 mg/dL (8.7-10.4); Carbon Dioxide 29 mmol/L (20-30); Chloride 100 mmol/L (98-107); Glucose 112 mg/dL (74-106); Potassium 3.8 mmol/L (3.5-5.1); Sodium 136 mmol/L (136-145); Total Protein 6.1 g/dL (5.7-8.2)
[2023-11-21 04:54] LABS: Bilirubin, Total 0.4 mg/dL (0.2-1.0)
[2023-11-21 07:19] LABS: Base Excess 2.7 mmol/L (-2.0-3.0)
[2023-11-22] VITALS (108 sets, daily range): BP systolic 67–250; BP diastolic 35–121; PULSE 48–92; RESP 11–27; TEMP 97.5–100.4; O2SAT 88–100
[2023-11-22 04:19] LABS: Basophils # (auto) 0 10 ^3/uL (0-0.2); Eosinophils # (auto) 0.1 10 ^3/uL (0-0.8); Lymphocytes # (auto) 1.5 10 ^3/uL (0.4-5.4); Lymphocytes % (auto) 14.4 % (10.0-50.0); Mean Corpuscular Hemoglobin 34.1 pg (28.0-32.0)
[2023-11-22 04:22] LABS: Basophils % (auto) 0.2 % (0.0-2.0); Eosinophils % (auto) 0.8 % (0.0-7.0); Hematocrit 41.7 % (41.0-53.0); Hemoglobin 14.7 g/dL (13.5-17.5); Mean Corpuscular Hgb Conc. 35.4 g/dL (32.0-36.0); Mean Corpuscular Volume 96.4 fL (80.0-100.0); Monocytes % (auto) 9.9 % (0.0-12.0); Neutrophils # (auto) 7.8 10 ^3/uL (1.6-8.6); Neutrophils % (auto) 74.7 % (37.0-80.0); Nucleated Red Blood Cells % 0.1 %; Platelet Count (auto) 202 10^3/uL (140-450); Red Blood Cells 4.32 10^6/uL (4.5-5.90); Red Cell Distribution Width 13.6 % (11.8-14.3); White Blood Cell 10.4 10^3/uL (4.4-10.8)
[2023-11-22 04:41] LABS: Anion Gap 7 (5-15); Carbon Dioxide 31 mmol/L (20-30); Chloride 101 mmol/L (98-107); Potassium 3.5 mmol/L (3.5-5.1); Sodium 139 mmol/L (136-145)
[2023-11-22 04:42] LABS: Calcium 9.5 mg/dL (8.7-10.4)
[2023-11-22 04:47] LABS: BUN/Creatinine Ratio 25.6 (10.0-20.0); Blood Urea Nitrogen 11 mg/dL (9-23); Glucose 105 mg/dL (74-106)
[2023-11-22 04:48] LABS: Magnesium 1.9 mg/dL (1.6-2.6)
[2023-11-22 04:49] LABS: Phosphorus 2.9 mg/dL (2.4-5.1)
[2023-11-22] MEDS: MAGNESIUM SULFATE 1GM/100ML 100 ML IV ONE (09:28)
[2023-11-22] MEDS: POTASSIUM CHL 20MEQ/100ML 100 ML IV SCH (09:28)
[2023-11-23] VITALS (103 sets, daily range): BP systolic 85–170; BP diastolic 46–96; PULSE 48–79; RESP 14–27; TEMP 97.9–100.2; O2SAT 95–100
[2023-11-23 04:07] LABS: Alanine Aminotransferase 22 U/L (7-40); Albumin 3.4 g/dL (3.2-4.8); Aspartate Aminotransferase 14 U/L (13-40); Bilirubin, Total 0.6 mg/dL (0.2-1.0); Chloride 103 mmol/L (98-107); Phosphorus 2.8 mg/dL (2.4-5.1); Potassium 3.7 mmol/L (3.5-5.1); Sodium 138 mmol/L (136-145); Total Protein 5.8 g/dL (5.7-8.2)
[2023-11-23 04:10] LABS: Anion Gap 5 (5-15); Carbon Dioxide 30 mmol/L (20-30)
[2023-11-23 04:15] LABS: Alkaline Phosphatase 56 U/L (46-116); BUN/Creatinine Ratio 22.9 (10.0-20.0); Blood Urea Nitrogen 11 mg/dL (9-23); Glucose 130 mg/dL (74-106); Magnesium 2.1 mg/dL (1.6-2.6)
[2023-11-23 04:20] LABS: Calcium 9.3 mg/dL (8.7-10.4)
[2023-11-23 06:48] LABS: Base Excess 5.5 mmol/L (-2.0-3.0)
[2023-11-24] VITALS (106 sets, daily range): BP systolic 102–158; BP diastolic 58–88; PULSE 49–75; RESP 12–24; TEMP 99.1–99.9; O2SAT 93–100
[2023-11-24 04:09] LABS: Basophils # (auto) 0 10 ^3/uL (0-0.2); Basophils % (auto) 0.3 % (0.0-2.0); Chloride 103 mmol/L (98-107); Eosinophils # (auto) 0.1 10 ^3/uL (0-0.8); Hematocrit 39.5 % (41.0-53.0); Monocytes # (auto) 1.1 10 ^3/uL (0-1.3); Platelet Count (auto) 184 10^3/uL (140-450); Potassium 3.7 mmol/L (3.5-5.1); Sodium 138 mmol/L (136-145)
[2023-11-24 04:10] LABS: Anion Gap 3 (5-15); Carbon Dioxide 32 mmol/L (20-30)
[2023-11-24 04:11] LABS: Calcium 9.3 mg/dL (8.7-10.4)
[2023-11-24 04:13] LABS: Eosinophils % (auto) 1.1 % (0.0-7.0); Lymphocytes # (auto) 1.7 10 ^3/uL (0.4-5.4); Lymphocytes % (auto) 17.7 % (10.0-50.0); Mean Corpuscular Hemoglobin 34.3 pg (28.0-32.0); Mean Corpuscular Hgb Conc. 35.5 g/dL (32.0-36.0); Mean Corpuscular Volume 96.7 fL (80.0-100.0); Monocytes % (auto) 11.4 % (0.0-12.0); Neutrophils # (auto) 6.5 10 ^3/uL (1.6-8.6); Neutrophils % (auto) 69.5 % (37.0-80.0); Nucleated Red Blood Cells % 0.2 %; Red Blood Cells 4.09 10^6/uL (4.5-5.90); Red Cell Distribution Width 13.4 % (11.8-14.3); White Blood Cell 9.4 10^3/uL (4.4-10.8)
[2023-11-24 04:15] LABS: BUN/Creatinine Ratio 27.3 (10.0-20.0); Blood Urea Nitrogen 12 mg/dL (9-23); Glucose 89 mg/dL (74-106)
[2023-11-24 04:16] LABS: Magnesium 1.9 mg/dL (1.6-2.6)
[2023-11-24 04:42] LABS: INR 1.36 (0.9-1.15); Partial Thromboplastin Time 27.6 SEC (24.5-34.5); Prothrombin Time 14.1 sec (9.3-11.8)
[2023-11-24 07:09] LABS: Base Excess 3.6 mmol/L (-2.0-3.0)
[2023-11-24] MEDS: POTASSIUM CHL 20MEQ/100ML 100 ML IV ONE (08:50)
[2023-11-24] MEDS: MAGNESIUM SULFATE 1GM/100ML 100 ML IV ONE (08:51)
[2023-11-24] MEDS: ENOXAPARIN SOD 80 MG/0.8ML SYRINGE SC SCH (08:51)
[2023-11-24] MEDS ORDERED: NALOXONE HCL 0.4 MG/ML VIAL ONE (15:51)
[2023-11-24] MEDS ORDERED: FLUMAZENIL 0.1 MG/ML INJ 10ML MDV IV ONE (15:51)
[2023-11-24] MEDS ORDERED: SODIUM CHLORIDE LOCK 10 ML ONE (15:52)
[2023-11-24] MEDS ORDERED: MIDAZOLAM HCL 5 MG/ML-1ML VIAL ONE (15:52)
[2023-11-24] MEDS ORDERED: fentaNYL CITRATE 100 MCG/2 ML VL ONE (15:52)
[2023-11-24] MEDS ORDERED: diphenhdrAMINE HCL 50 MG/1 ML VL ONE (15:52)
[2023-11-24] MEDS: MIDAZOLAM HCL 5 MG/ML-1ML VIAL IV ONE (16:08)
[2023-11-25] VITALS (61 sets, daily range): BP systolic 97–164; BP diastolic 60–96; PULSE 52–103; RESP 17–25; TEMP 98.8–100; O2SAT 92–99
[2023-11-25 04:25] LABS: Basophils # (auto) 0 10 ^3/uL (0-0.2); Basophils % (auto) 0.4 % (0.0-2.0); Eosinophils # (auto) 0.1 10 ^3/uL (0-0.8); Eosinophils % (auto) 1.1 % (0.0-7.0); Hemoglobin 14.9 g/dL (13.5-17.5); Monocytes # (auto) 0.9 10 ^3/uL (0-1.3); Nucleated Red Blood Cells % 0.1 %
[2023-11-25 04:28] LABS: Hematocrit 43.2 % (41.0-53.0); Lymphocytes # (auto) 1.7 10 ^3/uL (0.4-5.4); Lymphocytes % (auto) 18.5 % (10.0-50.0); Mean Corpuscular Hemoglobin 33.9 pg (28.0-32.0); Mean Corpuscular Hgb Conc. 34.5 g/dL (32.0-36.0); Mean Corpuscular Volume 98.2 fL (80.0-100.0); Monocytes % (auto) 9.9 % (0.0-12.0); Neutrophils # (auto) 6.4 10 ^3/uL (1.6-8.6); Neutrophils % (auto) 70.1 % (37.0-80.0); Platelet Count (auto) 194 10^3/uL (140-450); Red Blood Cells 4.39 10^6/uL (4.5-5.90); Red Cell Distribution Width 13.7 % (11.8-14.3); White Blood Cell 9.1 10^3/uL (4.4-10.8)
[2023-11-25 04:33] LABS: Anion Gap 9 (5-15); Carbon Dioxide 27 mmol/L (20-30); Chloride 101 mmol/L (98-107); Potassium 3.9 mmol/L (3.5-5.1); Sodium 137 mmol/L (136-145)
[2023-11-25 04:34] LABS: Calcium 9.5 mg/dL (8.7-10.4)
[2023-11-25 04:39] LABS: BUN/Creatinine Ratio 23.3 (10.0-20.0); Blood Urea Nitrogen 10 mg/dL (9-23); Glucose 73 mg/dL (74-106)
[2023-11-25 04:40] LABS: INR 1.35 (0.9-1.15); Partial Thromboplastin Time 27.7 SEC (24.5-34.5)
[2023-11-25 04:41] LABS: Phosphorus 3.5 mg/dL (2.4-5.1)
[2023-11-25] MEDS: ACETAMINOPHEN IV 1000 MG/100ML (10MG/ML) IV ONE (10:49)
[2023-11-25] MEDS: ACETAMINOPHEN IV 100 ML IV ONE (10:52)
[2023-11-25] MEDS ORDERED: LORazepam 2MG/ML-1ML VIAL IV PRN (13:45)
[2023-11-25] MEDS: METOCLOPRAMIDE HCL 5MG/ml INJ 2ml VIAL IV PRN (14:07)
[2023-11-26] VITALS (43 sets, daily range): BP systolic 70–145; BP diastolic 44–85; PULSE 51–76; RESP 16–28; TEMP 98.2–100.6; O2SAT 93–100
[2023-11-26 04:30] LABS: Basophils # (auto) 0.1 10 ^3/uL (0-0.2); Basophils % (auto) 0.5 % (0.0-2.0); Eosinophils # (auto) 0.1 10 ^3/uL (0-0.8); Eosinophils % (auto) 0.8 % (0.0-7.0); Hemoglobin 15.2 g/dL (13.5-17.5); Monocytes # (auto) 1.1 10 ^3/uL (0-1.3); Red Cell Distribution Width 13.7 % (11.8-14.3)
[2023-11-26 04:32] LABS: Hematocrit 42.8 % (41.0-53.0); Lymphocytes # (auto) 1.4 10 ^3/uL (0.4-5.4); Lymphocytes % (auto) 11.5 % (10.0-50.0); Mean Corpuscular Hemoglobin 34.7 pg (28.0-32.0); Mean Corpuscular Hgb Conc. 35.5 g/dL (32.0-36.0); Mean Corpuscular Volume 97.8 fL (80.0-100.0); Monocytes % (auto) 9.2 % (0.0-12.0); Neutrophils # (auto) 9.1 10 ^3/uL (1.6-8.6); Nucleated Red Blood Cells % 0.2 %; Platelet Count (auto) 203 10^3/uL (140-450); Red Blood Cells 4.38 10^6/uL (4.5-5.90); White Blood Cell 11.7 10^3/uL (4.4-10.8)
[2023-11-26 04:33] LABS: Alanine Aminotransferase 18 U/L (7-40); Albumin 3.8 g/dL (3.2-4.8); Alkaline Phosphatase 74 U/L (46-116); Anion Gap 12 (5-15); Aspartate Aminotransferase 16 U/L (13-40); BUN/Creatinine Ratio 22.9 (10.0-20.0); Blood Urea Nitrogen 11 mg/dL (9-23); Calcium 9.9 mg/dL (8.7-10.4); Carbon Dioxide 27 mmol/L (20-30); Chloride 99 mmol/L (98-107); Glucose 82 mg/dL (74-106); Potassium 3.6 mmol/L (3.5-5.1); Sodium 138 mmol/L (136-145)
[2023-11-26 04:34] LABS: Total Protein 6.4 g/dL (5.7-8.2)
[2023-11-26 04:44] LABS: INR 1.41 (0.9-1.15); Partial Thromboplastin Time 26.9 SEC (24.5-34.5); Prothrombin Time 14.6 sec (9.3-11.8)
[2023-11-26] MEDS ORDERED: MIDAZOLAM HCL 2MG/2ML 2ml VIAL (1mg/ml) ONE (07:04)
[2023-11-26] MEDS ORDERED: PROPOFOL 10 MG/ML 20 ML IV ONE (07:04)
[2023-11-26] MEDS ORDERED: SODIUM CHLORIDE LOCK 30 ML ONE (07:04)
[2023-11-26] MEDS ORDERED: KETAMINE 50mg/ML 1ml syringe ONE (07:04)
[2023-11-26] MEDS ORDERED: fentaNYL CITRATE 5 ML ONE (07:04)
[2023-11-26] MEDS ORDERED: ROCURONIUM 10MG/ML 10ML VIAL IV ONE (07:04)
[2023-11-26] MEDS ORDERED: MEPERIDINE HCL (50 MG/ML) 1 ML VIAL ONE ×2 (07:04→08:10)
[2023-11-26 07:32] LABS: Base Excess 2.9 mmol/L (-2.0-3.0)
[2023-11-26] MEDS: BUPIVACAINE 0.25% INJ 50ML VIAL ONE (08:00)
[2023-11-26] MEDS: ceFAZolin 1GM/50ML 50 ML IV ONE (08:30)
[2023-11-26] MEDS: LIDOCAINE W/ EPINEPHRINE 1% 20ML VIAL ONE (08:30)
[2023-11-26] MEDS: LIDOCAINE 1% INJ PF 5ML AMP ONE (09:18)
[2023-11-26 19:30] LABS: COVID19 ANTIGEN SOFIA FIA NEGATIVE (NEGATIVE)
[2023-11-26 19:31] LABS: Rapid Influenza A Negative (Negative); Rapid Influenza B Negative (Negative)
[2023-11-27] VITALS (34 sets, daily range): BP systolic 100–164; BP diastolic 60–95; PULSE 53–79; RESP 15–29; TEMP 98.1–99.9; O2SAT 93–99
[2023-11-27 03:55] LABS: Platelet Count (auto) 169 10^3/uL (140-450)
[2023-11-27 04:05] LABS: Chloride 100 mmol/L (98-107); Potassium 3.4 mmol/L (3.5-5.1); Sodium 137 mmol/L (136-145)
[2023-11-27 04:06] LABS: Anion Gap 11 (5-15); Carbon Dioxide 26 mmol/L (20-30)
[2023-11-27 04:07] LABS: Calcium 9.5 mg/dL (8.7-10.4)
[2023-11-27 04:11] LABS: BUN/Creatinine Ratio 28.9 (10.0-20.0); Blood Urea Nitrogen 13 mg/dL (9-23); Glucose 83 mg/dL (74-106)
[2023-11-27 04:12] LABS: Magnesium 1.8 mg/dL (1.6-2.6)
[2023-11-27 04:13] LABS: Basophils # (auto) 0 10 ^3/uL (0-0.2); Basophils % (auto) 0.5 % (0.0-2.0); Eosinophils # (auto) 0.1 10 ^3/uL (0-0.8); Eosinophils % (auto) 1.2 % (0.0-7.0); Hematocrit 41.2 % (41.0-53.0); Hemoglobin 14.5 g/dL (13.5-17.5); Lymphocytes # (auto) 1.5 10 ^3/uL (0.4-5.4); Lymphocytes % (auto) 16.2 % (10.0-50.0); Mean Corpuscular Hemoglobin 34.2 pg (28.0-32.0); Mean Corpuscular Hgb Conc. 35.2 g/dL (32.0-36.0); Mean Corpuscular Volume 96.9 fL (80.0-100.0); Monocytes # (auto) 0.7 10 ^3/uL (0-1.3); Monocytes % (auto) 7.5 % (0.0-12.0); Neutrophils # (auto) 6.7 10 ^3/uL (1.6-8.6); Neutrophils % (auto) 74.6 % (37.0-80.0); Red Blood Cells 4.25 10^6/uL (4.5-5.90); Red Cell Distribution Width 13.9 % (11.8-14.3)
[2023-11-27 04:14] LABS: Phosphorus 2.7 mg/dL (2.4-5.1)
[2023-11-27] MEDS: MAGNESIUM SULFATE 1GM/100ML 100 ML IV ONE (07:19)
[2023-11-27] MEDS: POTASSIUM CHL 20MEQ/100ML 100 ML IV ONE (08:50)
[2023-11-27 09:47] LABS: Base Excess 2.6 mmol/L (-2.0-3.0)
[2023-11-27] MEDS: CEFEPIME 2GM/50ML NS 50 ML IV ONE (11:50)
[2023-11-27] MEDS: DOCUSATE ORAL LIQUID 100 MG/10 ML UD PO SCH (11:50)
[2023-11-27] MEDS: LACTULOSE 20Gm/30ML SOLN PO SCH (11:50)
[2023-11-27] MEDS: [UNRECOGNIZED DRUG - OTHER] PEG SCH (13:15)
[2023-11-27] MEDS: ENOXAPARIN SOD 80 MG/0.8ML SYRINGE SC SCH (22:28)
[2023-11-27] MEDS: CEFEPIME 2GM/50ML NS 50 ML IV SCH (22:29)
[2023-11-28] VITALS (84 sets, daily range): BP systolic 81–221; BP diastolic 45–97; PULSE 52–153; RESP 12–36; TEMP 97.9–100.8; O2SAT 91–100
[2023-11-28] MEDS: hydrALAZINE HCL 20 MG/ML VL IV PRN (06:14)
[2023-11-28 06:56] LABS: Basophils # (auto) 0 10 ^3/uL (0-0.2); Basophils % (auto) 0.6 % (0.0-2.0); Eosinophils # (auto) 0.2 10 ^3/uL (0-0.8); Lymphocytes # (auto) 1.2 10 ^3/uL (0.4-5.4); Monocytes % (auto) 9.4 % (0.0-12.0); Neutrophils % (auto) 73.4 % (37.0-80.0); Nucleated Red Blood Cells % 0.1 %
[2023-11-28 06:59] LABS: Eosinophils % (auto) 1.9 % (0.0-7.0); Hematocrit 41.9 % (41.0-53.0); Hemoglobin 14.5 g/dL (13.5-17.5); Lymphocytes % (auto) 14.7 % (10.0-50.0); Mean Corpuscular Hemoglobin 33.8 pg (28.0-32.0); Mean Corpuscular Hgb Conc. 34.6 g/dL (32.0-36.0); Mean Corpuscular Volume 97.7 fL (80.0-100.0); Monocytes # (auto) 0.8 10 ^3/uL (0-1.3); Neutrophils # (auto) 5.9 10 ^3/uL (1.6-8.6); Platelet Count (auto) 209 10^3/uL (140-450); Red Blood Cells 4.29 10^6/uL (4.5-5.90); Red Cell Distribution Width 13.8 % (11.8-14.3)
[2023-11-28 07:18] LABS: Anion Gap 12 (5-15); Carbon Dioxide 25 mmol/L (20-30); Chloride 100 mmol/L (98-107); Potassium 3.1 mmol/L (3.5-5.1); Sodium 137 mmol/L (136-145)
[2023-11-28 07:19] LABS: Calcium 9.4 mg/dL (8.7-10.4)
[2023-11-28 07:24] LABS: BUN/Creatinine Ratio 19.2 (10.0-20.0); Blood Urea Nitrogen 10 mg/dL (9-23); Glucose 93 mg/dL (74-106)
[2023-11-28] MEDS ORDERED: POTASSIUM CHL 20MEQ/100ML 100 ML IV SCH (08:00)
[2023-11-28] MEDS ORDERED: POTASSIUM CHL 20MEQ/100ML 100 ML IV ONE (08:15)
[2023-11-28] MEDS: AMIODARONE 450mg/250ml AE 250 ML IV ONE (08:17)
[2023-11-28] MEDS: AMIODARONE 450mg/250ml AE 250 ML IV SCH ×2 (08:30→14:48)
[2023-11-28] MEDS: POTASSIUM CHL 20MEQ/100ML 100 ML IV SCH (10:53)
[2023-11-28] MEDS: CEFEPIME 2GM/50ML NS 50 ML IV SCH (17:39)
[2023-11-28 22:53] LABS: Chloride 103 mmol/L (98-107); Potassium 4.4 mmol/L (3.5-5.1); Sodium 135 mmol/L (136-145)
[2023-11-28 22:54] LABS: Anion Gap 9 (5-15); Calcium 9.2 mg/dL (8.7-10.4); Carbon Dioxide 23 mmol/L (20-31)
[2023-11-28 22:59] LABS: BUN/Creatinine Ratio 22.6 (10.0-20.0); Blood Urea Nitrogen 12 mg/dL (9-23); Glucose 133 mg/dL (74-106)
[2023-11-29] VITALS (98 sets, daily range): BP systolic 91–217; BP diastolic 46–98; PULSE 51–95; RESP 8–33; TEMP 97.5–98.8; O2SAT 84–100
[2023-11-29 06:09] LABS: Basophils # (auto) 0.1 10 ^3/uL (0-0.2); Basophils % (auto) 0.8 % (0.0-2.0); Eosinophils # (auto) 0.1 10 ^3/uL (0-0.8); Eosinophils % (auto) 2.1 % (0.0-7.0); Hemoglobin 13.9 g/dL (13.5-17.5); Lymphocytes # (auto) 0.8 10 ^3/uL (0.4-5.4); Lymphocytes % (auto) 11.9 % (10.0-50.0); Mean Corpuscular Hemoglobin 33.7 pg (28.0-32.0); Mean Corpuscular Hgb Conc. 34.7 g/dL (32.0-36.0); Mean Corpuscular Volume 97.3 fL (80.0-100.0); Monocytes # (auto) 0.5 10 ^3/uL (0-1.3); Monocytes % (auto) 7.3 % (0.0-12.0); Neutrophils # (auto) 5.5 10 ^3/uL (1.6-8.6); Neutrophils % (auto) 77.9 % (37.0-80.0); Nucleated Red Blood Cells % 0.1 %; Platelet Count (auto) 180 10^3/uL (140-450); Red Blood Cells 4.11 10^6/uL (4.5-5.90); Red Cell Distribution Width 13.8 % (11.8-14.3); White Blood Cell 7.1 10^3/uL (4.4-10.8)
[2023-11-29 06:19] LABS: Anion Gap 8 (5-15); Carbon Dioxide 26 mmol/L (20-31); Chloride 102 mmol/L (98-107); Potassium 3.9 mmol/L (3.5-5.1); Sodium 136 mmol/L (136-145)
[2023-11-29 06:20] LABS: Calcium 9.2 mg/dL (8.7-10.4)
[2023-11-29 06:25] LABS: Blood Urea Nitrogen 13 mg/dL (9-23); Glucose 104 mg/dL (74-106)
[2023-11-29] MEDS ORDERED: DOCUSATE SOD 100 MG CAP PO PRN (16:30)
[2023-11-29] MEDS: DOCUSATE ORAL LIQUID 100 MG/10 ML UD GT SCH (21:32)
[2023-11-29] MEDS: AMIODARONE HCL 200 MG TAB PO SCH (21:33)
[2023-11-30] VITALS (81 sets, daily range): BP systolic 101–233; BP diastolic 63–114; PULSE 53–76; RESP 11–24; TEMP 97.5–98.3; O2SAT 86–100
[2023-11-30 06:08] LABS: Eosinophils # (auto) 0.2 10 ^3/uL (0-0.8); Monocytes # (auto) 0.7 10 ^3/uL (0-1.3)
[2023-11-30 06:14] LABS: Basophils # (auto) 0 10 ^3/uL (0-0.2); Basophils % (auto) 0.8 % (0.0-2.0); Eosinophils % (auto) 2.8 % (0.0-7.0); Hematocrit 38.5 % (41.0-53.0); Hemoglobin 13.5 g/dL (13.5-17.5); Lymphocytes % (auto) 17.1 % (10.0-50.0); Mean Corpuscular Hemoglobin 34.4 pg (28.0-32.0); Mean Corpuscular Hgb Conc. 35.1 g/dL (32.0-36.0); Mean Corpuscular Volume 98.2 fL (80.0-100.0); Monocytes % (auto) 11.8 % (0.0-12.0); Neutrophils % (auto) 67.5 % (37.0-80.0); Nucleated Red Blood Cells % 0.1 %; Platelet Count (auto) 154 10^3/uL (140-450); Red Blood Cells 3.92 10^6/uL (4.5-5.90); Red Cell Distribution Width 14.1 % (11.8-14.3); White Blood Cell 5.9 10^3/uL (4.4-10.8)
[2023-11-30 06:30] LABS: Alanine Aminotransferase 20 U/L (7-40); Albumin 3.4 g/dL (3.2-4.8); Alkaline Phosphatase 61 U/L (46-116); Anion Gap 10 (5-15); Aspartate Aminotransferase 22 U/L (13-40); BUN/Creatinine Ratio 25.6 (10.0-20.0); Blood Urea Nitrogen 11 mg/dL (9-23); Calcium 9.3 mg/dL (8.7-10.4); Carbon Dioxide 22 mmol/L (20-31); Chloride 104 mmol/L (98-107); Glucose 90 mg/dL (74-106); Potassium 3.7 mmol/L (3.5-5.1); Sodium 136 mmol/L (136-145)
[2023-11-30 06:31] LABS: Bilirubin, Total 0.5 mg/dL (0.2-1.0); Total Protein 5.8 g/dL (5.7-8.2)
[2023-12-01] VITALS (92 sets, daily range): BP systolic 96–197; BP diastolic 53–93; PULSE 49–78; RESP 10–27; TEMP 97–99.7; O2SAT 91–100
[2023-12-01 06:00] LABS: Basophils # (auto) 0 10 ^3/uL (0-0.2); Basophils % (auto) 0.8 % (0.0-2.0); Eosinophils # (auto) 0.2 10 ^3/uL (0-0.8); Eosinophils % (auto) 3.4 % (0.0-7.0); Hematocrit 39.7 % (41.0-53.0); Hemoglobin 13.9 g/dL (13.5-17.5); Lymphocytes # (auto) 1.1 10 ^3/uL (0.4-5.4); Lymphocytes % (auto) 18.1 % (10.0-50.0); Mean Corpuscular Hemoglobin 33.9 pg (28.0-32.0); Mean Corpuscular Hgb Conc. 35.1 g/dL (32.0-36.0); Mean Corpuscular Volume 96.5 fL (80.0-100.0); Monocytes # (auto) 0.7 10 ^3/uL (0-1.3); Monocytes % (auto) 11.4 % (0.0-12.0); Neutrophils # (auto) 3.9 10 ^3/uL (1.6-8.6); Neutrophils % (auto) 66.3 % (37.0-80.0); Nucleated Red Blood Cells % 0.1 %; Platelet Count (auto) 208 10^3/uL (140-450); Red Blood Cells 4.11 10^6/uL (4.5-5.90); Red Cell Distribution Width 13.7 % (11.8-14.3); White Blood Cell 5.9 10^3/uL (4.4-10.8)
[2023-12-01 06:07] LABS: Chloride 104 mmol/L (98-107); Potassium 3.7 mmol/L (3.5-5.1); Sodium 138 mmol/L (136-145)
[2023-12-01 06:08] LABS: Anion Gap 10 (5-15); Calcium 9.2 mg/dL (8.7-10.4); Carbon Dioxide 24 mmol/L (20-31)
[2023-12-01 06:13] LABS: Glucose 92 mg/dL (74-106)
[2023-12-01 06:14] LABS: BUN/Creatinine Ratio 21.7 (10.0-20.0); Blood Urea Nitrogen 10 mg/dL (9-23)
[2023-12-01] MEDS: [UNRECOGNIZED DRUG - OTHER] PEG SCH (08:11)
[2023-12-02] VITALS (33 sets, daily range): BP systolic 110–171; BP diastolic 63–87; PULSE 51–90; RESP 9–23; TEMP 98–99.2; O2SAT 95–100
[2023-12-02 05:14] LABS: Basophils # (auto) 0 10 ^3/uL (0-0.2); Basophils % (auto) 0.6 % (0.0-2.0); Eosinophils # (auto) 0.2 10 ^3/uL (0-0.8); Eosinophils % (auto) 3.4 % (0.0-7.0); Hemoglobin 14.2 g/dL (13.5-17.5); Lymphocytes % (auto) 16.7 % (10.0-50.0); Mean Corpuscular Hemoglobin 33.2 pg (28.0-32.0); Mean Corpuscular Hgb Conc. 34.6 g/dL (32.0-36.0); Mean Corpuscular Volume 95.8 fL (80.0-100.0); Monocytes # (auto) 0.7 10 ^3/uL (0-1.3); Monocytes % (auto) 11.4 % (0.0-12.0); Neutrophils # (auto) 4.2 10 ^3/uL (1.6-8.6); Neutrophils % (auto) 67.9 % (37.0-80.0); Nucleated Red Blood Cells % 0.1 %; Platelet Count (auto) 217 10^3/uL (140-450); Red Blood Cells 4.28 10^6/uL (4.5-5.90); Red Cell Distribution Width 13.8 % (11.8-14.3); White Blood Cell 6.2 10^3/uL (4.4-10.8)
[2023-12-02 05:28] LABS: Anion Gap 8 (5-15); Carbon Dioxide 24 mmol/L (20-31); Chloride 105 mmol/L (98-107); Potassium 3.6 mmol/L (3.5-5.1); Sodium 137 mmol/L (136-145)
[2023-12-02 05:29] LABS: Calcium 9.3 mg/dL (8.7-10.4)
[2023-12-02 05:34] LABS: BUN/Creatinine Ratio 22.4 (10.0-20.0); Blood Urea Nitrogen 11 mg/dL (9-23); Glucose 125 mg/dL (74-106)
[2023-12-02 05:35] LABS: Magnesium 1.9 mg/dL (1.6-2.6)
[2023-12-02 07:23] LABS: Base Excess -2.5 mmol/L (-2.0-3.0)
[2023-12-02] MEDS: MAGNESIUM SULFATE 1GM/100ML 100 ML IV ONE ×2 (21:56→21:57)
[2023-12-02] MEDS: POTASSIUM CHL 20MEQ/100ML 100 ML IV ONE (21:57)
[2023-12-02] MEDS: MORPHINE SULFATE INJ 2 MG/ml SYRG IV PRN (22:28)
[2023-12-03] VITALS (35 sets, daily range): BP systolic 108–185; BP diastolic 63–89; PULSE 48–79; RESP 15–22; TEMP 97.6–98.9; O2SAT 95–100
[2023-12-03 05:25] LABS: Basophils # (auto) 0.1 10 ^3/uL (0-0.2); Basophils % (auto) 0.7 % (0.0-2.0); Eosinophils # (auto) 0.2 10 ^3/uL (0-0.8); Eosinophils % (auto) 3.3 % (0.0-7.0); Hematocrit 41.4 % (41.0-53.0); Hemoglobin 14.5 g/dL (13.5-17.5); Lymphocytes # (auto) 1.2 10 ^3/uL (0.4-5.4); Lymphocytes % (auto) 16.1 % (10.0-50.0); Mean Corpuscular Hemoglobin 33.9 pg (28.0-32.0); Mean Corpuscular Volume 96.9 fL (80.0-100.0); Monocytes # (auto) 0.8 10 ^3/uL (0-1.3); Monocytes % (auto) 11.2 % (0.0-12.0); Neutrophils % (auto) 68.7 % (37.0-80.0); Nucleated Red Blood Cells % 0.1 %; Platelet Count (auto) 236 10^3/uL (140-450); Red Blood Cells 4.27 10^6/uL (4.5-5.90); Red Cell Distribution Width 13.8 % (11.8-14.3); White Blood Cell 7.3 10^3/uL (4.4-10.8)
[2023-12-03 05:39] LABS: Alanine Aminotransferase 18 U/L (7-40); Albumin 3.7 g/dL (3.2-4.8); Alkaline Phosphatase 65 U/L (46-116); Anion Gap 7 (5-15); Aspartate Aminotransferase 17 U/L (13-40); BUN/Creatinine Ratio 22.2 (10.0-20.0); Bilirubin, Total 0.6 mg/dL (0.2-1.0); Blood Urea Nitrogen 10 mg/dL (9-23); Calcium 9.5 mg/dL (8.7-10.4); Carbon Dioxide 25 mmol/L (20-31); Chloride 107 mmol/L (98-107); Glucose 105 mg/dL (74-106); Magnesium 2.2 mg/dL (1.6-2.6); Potassium 3.8 mmol/L (3.5-5.1); Sodium 139 mmol/L (136-145); Total Protein 6.2 g/dL (5.7-8.2)
== END 2023-12-03 21:20 | DRG 4 ==
LOC: EDBD 04:06 → ER 04:06 → WEST WING 10:25 → ICU WEST 10:25 → OVERFLOW 10:25 → WEST WING 23:50 → TELE-WESTW 11-07 08:10 → ICU WEST 11-07 11:30 → DOU IN ICU 11-27 17:46
PROVIDERS: ADMIT Internal Medicine; ATTEND Internal Medicine
PROC: 5A09457 Assistance with Respiratory Ventilation, 24-96 Consecutive Hours, Continuous Positive Airway Pressure (ICD-10-PCS; 2023-11-06)
PROC: 5A1955Z Respiratory Ventilation, Greater than 96 Consecutive Hours (ICD-10-PCS; principal; 2023-11-07)
PROC: 0BH17EZ Insertion of Endotracheal Airway into Trachea, Via Natural or Artificial Opening (ICD-10-PCS; 2023-11-07)
PROC: 02HV33Z Insertion of Infusion Device into Superior Vena Cava, Percutaneous Approach (ICD-10-PCS; 2023-11-07)
PROC: B548ZZA Ultrasonography of Superior Vena Cava, Guidance (ICD-10-PCS; 2023-11-07)
PROC: 0B9J8ZX Drainage of Left Lower Lung Lobe, Via Natural or Artificial Opening Endoscopic, Diagnostic (ICD-10-PCS; 2023-11-08)
PROC: 0B9F8ZX Drainage of Right Lower Lung Lobe, Via Natural or Artificial Opening Endoscopic, Diagnostic (ICD-10-PCS; 2023-11-08)
PROC: 5A09357 Assistance with Respiratory Ventilation, Less than 24 Consecutive Hours, Continuous Positive Airway Pressure (ICD-10-PCS; 2023-11-13)
PROC: 5A09357 Assistance with Respiratory Ventilation, Less than 24 Consecutive Hours, Continuous Positive Airway Pressure (ICD-10-PCS; 2023-11-14)
PROC: 5A0935A Assistance with Respiratory Ventilation, Less than 24 Consecutive Hours, High Flow/Velocity Cannula (ICD-10-PCS; 2023-11-14)
PROC: 5A1955Z Respiratory Ventilation, Greater than 96 Consecutive Hours (ICD-10-PCS; 2023-11-15)
PROC: 0BH17EZ Insertion of Endotracheal Airway into Trachea, Via Natural or Artificial Opening (ICD-10-PCS; 2023-11-15)
PROC: 0DH63UZ Insertion of Feeding Device into Stomach, Percutaneous Approach (ICD-10-PCS; 2023-11-24)
PROC: 0B110F4 Bypass Trachea to Cutaneous with Tracheostomy Device, Open Approach (ICD-10-PCS; 2023-11-26)
DX: A41.50 Gram-negative sepsis, unspecified (principal); I21.A1 Myocardial infarction type 2; J15.69 Pneumonia due to other Gram-negative bacteria; J15.9 Unspecified bacterial pneumonia; J96.01 Acute respiratory failure with hypoxia; R65.21 Severe sepsis with septic shock; J69.0 Pneumonitis due to inhalation of food and vomit; J90 Pleural effusion, not elsewhere classified; J98.11 Atelectasis; G12.21 Amyotrophic lateral sclerosis; J44.0 Chronic obstructive pulmonary disease with (acute) lower respiratory infection; J44.1 Chronic obstructive pulmonary disease with (acute) exacerbation; E87.1 Hypo-osmolality and hyponatremia; E46 Unspecified protein-calorie malnutrition; Z99.11 Dependence on respirator [ventilator] status; Z66 Do not resuscitate; D45 Polycythemia vera; K80.20 Calculus of gallbladder without cholecystitis without obstruction; Z20.822 Contact with and (suspected) exposure to COVID-19; E03.9 Hypothyroidism, unspecified; I10 Essential (primary) hypertension; N28.1 Cyst of kidney, acquired; F12.10 Cannabis abuse, uncomplicated; K76.89 Other specified diseases of liver; I48.0 Paroxysmal atrial fibrillation; E87.6 Hypokalemia; H40.9 Unspecified glaucoma; E11.9 Type 2 diabetes mellitus without complications; Y95 Nosocomial condition; K82.8 Other specified diseases of gallbladder; K44.9 Diaphragmatic hernia without obstruction or gangrene; Z87.891 Personal history of nicotine dependence; Z85.828 Personal history of other malignant neoplasm of skin; Z82.49 Family history of ischemic heart disease and other diseases of the circulatory system; Z80.9 Family history of malignant neoplasm, unspecified; Z68.21 Body mass index [BMI] 21.0-21.9, adult
CPT/HCPCS: 36415; 36569; 36600; 43236; 71045; 71275; 76604; 76705; 80048; 80053; 80202; 80307; 81001; 82306; 82607; 82805; 82962; 83036; 83605; 83735; 84100; 84132; 84436; 84439; 84443; 84480; 84481; 84484; 85025; 85610; 85652; 85730; 86141; 87040; 87070; 87077; 87081; 87086; 87205; 87426; 87804; 92610; 93005; 93306; 93970; 93971; 94002; 94003; 94640; 94660; 96365; 97110; 97116; 97163; 97530; A4618; G0378; J0131; J0171; J0330; J0692; J1450; J1815; J1956; J2001; J2185; J2250; J2405; J2470; J2704; J3480; J3490; J7060